=== PATIENT | male | born 1940 | race Caucasian/White ===

== ENCOUNTER 2016-12-13 11:39 | Outpatient (CLI) | payer MEDICARE, OTHER ==
[2016-12-13 13:07] LABS: ALT (SGPT) 20 U/L (0-55); AST (SGOT) 16 U/L (5-34); Albumin 4.2 g/dL (3.4-4.8); Alkaline Phosphatase 82 U/L (40-150); Anion Gap 17 mmol/L (10-20); BUN (Urea Nitrogen) 16 mg/dL (8.4-25.7); Bilirubin, Total 0.6 mg/dL (0.2-1.2); Calc. Creatinine Clearance 0 mL/min (70-130); Calcium 9.3 mg/dL (7.8-10.44); Carbon Dioxide 26 mmol/L (23-31); Cardiac Risk 4.9 (Less than 4.5); Chloride 103 mmol/L (98-107); Cholesterol 156 mg/dL (< 200 Desired); Estimated GFR-MDRD 57; Globulin 2.3 g/dL (2.4-3.5); Glucose 125 mg/dL (83-110); HDL Cholesterol 32 mg/dL (>60 Neg Risk); LDL Cholesterol, Calculated 98 mg/dL; Potassium 4.5 mmol/L (3.5-5.1); Protein, Total 6.5 g/dL (5.8-8.1); Sodium 141 mmol/L (136-145); Triglycerides 131 mg/dL (Less than 150)
[2016-12-13 13:39] LABS: Eosinophils 3 % (0-10); Lymphocytes 37 % (21-51); MDiff Complete? YES; Mean Corpuscular HGB CONC 33.4 g/dL (32.0-36.0); Mean Corpuscular Volume 89.9 fl (80.0-94.0); Monocytes 8 % (0-10); Neutrophil 52 % (42-75); Platelet Count 251 thou/uL (130-400); RBC Distribution Width 12.8 % (11.5-14.5); Red Blood Cell (RBC) Count 5.65 mill/uL (4.70-6.10); White Blood Cell (WBC) Count 19.4 thou/uL (4.8-10.8)
[2016-12-13 14:00] LABS: Hemoglobin A1c 6.8 % (4.0-6.0)
== END 2016-12-13 11:40 | disposition home or self-care (01) ==
LOC: HPCALD 11:39
PROVIDERS: ATTEND Family Medicine
DX: E78.5 Hyperlipidemia, unspecified (principal); R73.03 Prediabetes; R73.9 Hyperglycemia, unspecified; I10 Essential (primary) hypertension
CPT/HCPCS: 36415; 80053; 80061; 83036; 85025